=== PATIENT | male | born 1995 | race African-American/Black ===

== ENCOUNTER 2017-10-07 19:49 | Emergency (ER) | payer SELFPAY, OTHER ==
[~2017-10-07 19:49] MED LIST: ISOVUE-370 76%-LOCM 1 ML ONE
[2017-10-07 20:31] LABS: #Basophils 0.1 thou/uL (0.0-0.2); #Eosinphils 0.3 thou/uL (0.0-0.7); #Lymphocytes 2.6 thou/uL (1.20-3.40); #Monocytes 0.7 thou/uL (0.11-0.59); #Neutrophils 6.2 thou/uL (1.40-6.50); %Basophils 0.6 % (0.0-1.0); %Eosinophils 3.5 % (0.0-10.0); Hemoglobin 15.2 g/dL (14.0-18.0); Mean Corpuscular HGB CONC 34.5 g/dL (32.0-36.0); Mean Corpuscular Hemoglobin 31.7 pg (27.0-31.0); Mean Corpuscular Volume 91.8 fl (80.0-94.0); Mean Platelet Volume 8.3 fL (7.4-10.4); Platelet Count 249 thou/uL (130-400); RBC Distribution Width 11.4 % (11.5-14.5); Red Blood Cell (RBC) Count 4.78 mill/uL (4.70-6.10); White Blood Cell (WBC) Count 9.8 thou/uL (4.8-10.8)
[2017-10-07 21:02] LABS: ALT (SGPT) 22 U/L (8-55); AST (SGOT) 21 U/L (5-34); Albumin 4.3 g/dL (3.5-5.0); Alkaline Phosphatase 59 U/L (40-150); Anion Gap 14 mmol/L (10-20); BUN (Urea Nitrogen) 11 mg/dL (8.9-20.6); Bilirubin, Total 0.3 mg/dL (0.2-1.2); Calc. Creatinine Clearance 0 mL/min (70-130); Carbon Dioxide 24 mmol/L (22-29); Chloride 105 mmol/L (98-107); Estimated GFR-MDRD Greater than 90; Globulin 3.6 g/dL (2.4-3.5); Glucose 104 mg/dL (70-105); Lipase 159 U/L (8-78); Potassium 3.8 mmol/L (3.5-5.1); Protein, Total 7.9 g/dL (6.0-8.3); Sodium 139 mmol/L (136-145)
[2017-10-07 22:14] LABS: Bilirubin Negative (Negative); Blood, Urine Negative (Negative); Clarity CLEAR (Clear); Glucose, Urine (Dipstick) Negative (Negative); Leukocyte Negative (Negative); Nitrite Negative (Negative); Protein, Urine (Dipstick) 30 mg/dL (Neg-Trace); Specific Gravity, Urine 1.029 (1.002-1.036); Urobilinogen 0.2 mg/dL (0.2-1.0); pH, Urine 5.5 (5.0-9.0)
[2017-10-07 22:17] LABS: Bacteria/HPF None Seen HPF (None Seen); Hyaline Casts/LPF 0-3 HYALINE CAST LPF (0-3 Hyaline); RBC/HPF 0-3 HPF (0-3); Squamous Epithelial 0-3 HPF (0-3)
[2017-10-07] MEDS ORDERED: Lorazepam 2 MG/ML VIAL ONE (22:34)
[2017-10-07] MEDS ORDERED: Ketorolac Tromethamine 30 MG/ML VIAL ONE (22:34)
--- NOTE | 2017-10-07 23:48 | CT ---
CT ABDOMEN AND PELVIS WITH IV CONTRAST 10/07/17 HISTORY: Abdominal pain, incarcerated hernia. Patient also reports testicular pain. FINDINGS: Comparison is made with the CT stone protocol of 05/13/[address] chest, abdomen and pelvis of 08/20/13 . The lung bases are clear. No free air or free fluid is seen in the abdomen or pelvis. The liver, sple en, pancreas, adrenal glands, and right kidney are normal. There is a 12 mm low density lesion in the left renal cortex. No lymphadenopathy is seen. No calcified gallstones are noted. A normal appearing appendix is present. There is a fat containing left inguinal scrotal hernia and an accompanying smal l left hydrocele. The small bowel loops are not abnormally dilated. There is mild inflammatory change at the neck of the left inguinal scrotal hernia. IMPRESSION: Fat containing left inguinal scrotal hernia with small left hydrocele. POS: ALINE
== END 2017-10-08 00:24 | disposition home or self-care (01) ==
LOC: ERS 19:49
DX: K40.90 Unilateral inguinal hernia, without obstruction or gangrene, not specified as recurrent (principal); F41.9 Anxiety disorder, unspecified; F31.9 Bipolar disorder, unspecified
CPT/HCPCS: 36415; 74177; 80053; 81003; 81015; 83690; 85025; 87081; 87086; 96374; 96375; J1885; J2060

== ENCOUNTER 2017-10-14 15:16 | Day surgery (SDC) | payer SELFPAY ==
[2017-10-14] MEDS ORDERED: Propofol 200 MG/20 ML VIAL ONE (15:19)
[2017-10-14] MEDS ORDERED: Ketorolac Tromethamine 30 MG/ML VIAL ONE (15:19)
[2017-10-14] MEDS ORDERED: Ondansetron HCl/PF 4 MG/2 ML Vial ONE ×2 (15:19→21:48)
[2017-10-14] MEDS ORDERED: Succinylcholine Chloride 20 MG/ML 10 ml SYRINGE FS ONE (15:19)
[2017-10-14] MEDS ORDERED: HYDROcodone/Acetaminophen 10/325 mg Tablet ONE (15:46)
[2017-10-14 18:18] LABS: #Basophils 0.1 thou/uL (0.0-0.2); #Eosinphils 0.3 thou/uL (0.0-0.7); #Lymphocytes 2.5 thou/uL (1.20-3.40); #Monocytes 0.7 thou/uL (0.11-0.59); #Neutrophils 5.1 thou/uL (1.40-6.50); %Basophils 0.6 % (0.0-1.0); %Lymphocytes 28.9 % (21.0-51.0); %Monocytes 8.3 % (0.0-10.0); %Neutrophils 58.3 % (42.0-75.0); Hemoglobin 15.3 g/dL (14.0-18.0); Mean Corpuscular HGB CONC 34.6 g/dL (32.0-36.0); Mean Corpuscular Hemoglobin 31.5 pg (27.0-31.0); Mean Platelet Volume 8.4 fL (7.4-10.4); Platelet Count 252 thou/uL (130-400); RBC Distribution Width 11.3 % (11.5-14.5); Red Blood Cell (RBC) Count 4.85 mill/uL (4.70-6.10); White Blood Cell (WBC) Count 8.8 thou/uL (4.8-10.8)
[2017-10-14] MEDS ORDERED: Fentanyl 250 MCG/5 ML VIAL ONE (18:18)
[2017-10-14] MEDS ORDERED: Midazolam HCl 2 mg/2 ml Vial ONE (18:18)
[2017-10-14 18:27] LABS: Prothrombin Time 13.4 SEC (12.0-14.7)
[2017-10-14 18:28] LABS: PTT 30.3 SEC (22.9-36.1)
[2017-10-14 18:36] LABS: ALT (SGPT) 19 U/L (8-55); AST (SGOT) 19 U/L (5-34); Albumin 4.4 g/dL (3.5-5.0); Alkaline Phosphatase 57 U/L (40-150); Anion Gap 14 mmol/L (10-20); BUN (Urea Nitrogen) 14 mg/dL (8.9-20.6); Bilirubin, Total 0.6 mg/dL (0.2-1.2); Calc. Creatinine Clearance 0 mL/min (70-130); Calcium 9.6 mg/dL (7.8-10.44); Carbon Dioxide 22 mmol/L (22-29); Chloride 105 mmol/L (98-107); Estimated GFR-MDRD Greater than 90; Globulin 3.4 g/dL (2.4-3.5); Glucose 86 mg/dL (70-105); Protein, Total 7.8 g/dL (6.0-8.3); Sodium 137 mmol/L (136-145)
[2017-10-14] MEDS ORDERED: Clindamycin/D5W 900 mg/50 ml Premix Bag ONE (18:49)
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
[2017-10-14] MEDS ORDERED: Bupivacaine HCl 0.5%/Epinephrine 1:200,000/PF 30 ml Vial ONE (19:40)
--- NOTE | 2017-10-14 20:21 | CT ---
CT ABDOMEN AND PELVIS WITH CONTRAST: 10/14/17 HISTORY: Inguinal hernia. Pain. COMPARISON: Exam 10/07/17. FINDINGS: Lung bases are clear. No pericardial effusion. There is abnormal edema along the left fat containing inguinal hernia. There is moderate volume of fl uid in the left scrotal sac, increasing from comparison examination. There is infiltration of the ome ntum and mesentery, this is all progressive from the comparison examination. The hernia contains only fat and vessels and no bowel. No dilated air filled loops of large or small bowel. No free intraperitoneal gas. No free intraperito cassandra fluid. No hydronephrosis. Liver, gallbladder and spleen are unremarkable. 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 IMPRESSION: Large fat containing indirect inguinal hernia with vascular congestion and edema and increased volume of fluid within the left scrotal sac. This is concerning for ischemic changes. Recommend clinical ev aluation and surgical consultation to evaluate for strangulation and incarceration. This has progress ed since the 10/07/17 examination. POS: HOME
[2017-10-14] MEDS ORDERED: Promethazine HCl 25 MG/ML VIAL IM PRN (20:28)
[2017-10-14] MEDS ORDERED: Promethazine HCl 25 MG/ML VIAL SLOW IVP PRN (20:28)
[2017-10-14] MEDS ORDERED: HYDROmorphone 2 MG/ML VIAL SLOW IVP PRN (20:28)
[2017-10-14] MEDS ORDERED: Meperidine HCl/PF 25 MG/ML VIAL SLOW IVP PRN (20:28)
[2017-10-14] MEDS ORDERED: Ondansetron HCl/PF 4 MG/2 ML Vial IVP PRN (20:28)
--- NOTE | 2017-10-14 20:38 | ULT ---
SCROTAL ULTRASOUND: 10/14/17 HISTORY: Left inguinal hernia, left sided pain. TECHNIQUE: Multiplanar raines scale sonographic imaging of the scrotal contents obtained with doppler interrogatio n of the testicles with color flow and spectral analysis. FINDINGS: There is a larger left sided hydrocele noted. Right testicle measures 3.9 x 4.1 x 2.1 cm and left jason ticle measures 2.3 x 3.4 x 2.4 cm. There is no hydrocele on the right. Normal blood flow noted in bot h testicles. Epididymal head measures 9 x 8 mm on the right and 1.1 x 0.6 cm on the left. There are numerous lobulated areas of increased echogenicity in the left scrotal sac, evidence of num erous loops of bowel extending into the left scrotal sac on the basis of large left inguinal hernia. This could be better assessed via CT examination of the pelvis. Of note, No loops of bowel are identi fied within the large fat containing inguinal hernia on the CT examination performed 10/07/17. IMPRESSION: Large left hydrocele. Large left inguinal hernia with the suggestion of numerous small bowel loops ex tending into the left hemiscrotum. Recommend further assessment via CT examination of the abdomen and pelvis. POS: [facility]
[2017-10-14] MEDS ORDERED: HYDROmorphone 0.5 MG/0.5 ML SYRINGE ONE (20:57)
[2017-10-14] MEDS ORDERED: Meperidine HCl/PF 25 MG/ML VIAL ONE (21:36)
--- NOTE | 2017-10-15 00:39 | OP ---
DATE OF OPERATION: 10/14/2017 PREOPERATIVE DIAGNOSIS: Acute incarcerated left inguinal hernia. POSTOPERATIVE DIAGNOSIS: Acute incarcerated left inguinal hernia. OPERATIONS PERFORMED: Repair of incarcerated large left inguinal hernia with PerFix light plug. SURGEON: Jake Ma D.O. ANESTHESIA: General endotracheal. ESTIMATED BLOOD LOSS: Less than 5 mL. SPONGE AND INSTRUMENT COUNT: Certified as correct x2. COMPLICATIONS: None apparent at the time of operation. INDICATIONS FOR PROCEDURE: A 22-year-old -French man presented with worsening left groin pa in associated with enlarging left scrotal mass. Clinical and radiographic examination was consistent with acute incarcerated left inguinal hernia for which the patient was brought to the operating room for hernia repair. Findings are consistent with a large left indirect incarcerated inguinal hernia. No direct hernia was found. DESCRIPTION OF PROCEDURE: Informed consent obtained from the patient who was brought to the operatin g room and placed in supine position. Following general anesthesia, the abdomen was sterilely preppe d and draped in the usual fashion. The prepping included the scrotum and proximal thighs. Following prepping and draping, the scrotal mass was evaluated, attempt to reduce was unsuccessful. An obliqu e left groin incision was made in the usual fashion using a 15 scalpel. The incision was carried thr ough the subcutaneous tissues maintaining hemostasis using the cautery. Lakia's fascia was incised along the line of the incision. External oblique aponeurosis was then incised along the running fibe rs using a fresh scalpel. Cremasteric muscles were then teased apart. I was able then to identify t he spermatic cord with all this contents. This was encircled at the pubic tubercle using a Shirley d rain. Additional dissection of the cremasteric muscle exposed the indirect inguinal hernia sac media l to the spermatic cord. This was dissected free from adhering structures and ligated in the high in guinal position after the omental contents were reduced into the peritoneal cavity. Ligation was acc omplished using a stick tie of 2-0 silk. This was doubly ligated again with a free tie of 2-0 silk. The redundant hernia sac was amputated and passed off the operative field for onward transmission to pathology. I inspected the floor, finding no direct hernia defect. At this juncture, the left test icle was reduced into the scrotal sac. I then placed a PerFix plug into the internal ring over the h ernia sac stump. The apex of the elliptical mesh piece was sutured to the pubic tubercle using a 2-0 Prolene. The medial edge of the mesh was sutured to the internal oblique aponeurosis. Laterally th e mesh was secured to the shelving portion of the external oblique aponeurosis. The distal end of th e mesh was then encircled above the previous plug. Once the mesh was secured into place, the Shirley drain was removed. The external oblique fascia was then approximated using a running stitch of 2-0 Prolene. Subcutaneous tissues were irrigated clear with saline. Good hemostasis noted in place. Th e wound bed was copiously infiltrated with 0.25% Marcaine with epinephrine. Fascia was approximated using interrupted sutures of 2-0 Vicryl. The superficial subcutaneous tissues were again approximate d using interrupted sutures of 2-0 Vicryl. Skin incision itself was closed using a running stitch of 4-0 Monocryl suture in subcuticular fashion. Dermabond was applied over incision. Both testicles w ere confirmed in place within the scrotal sac. The patient tolerated the operation without any appar ent complication and was returned to recovery room in satisfactory condition.
== END 2017-10-14 22:35 | disposition home or self-care (01) ==
LOC: ERS 15:16 → SDC 18:25 → ERS 18:34 → SDC 22:35 → ERS 22:35
PROVIDERS: ATTEND Surgery
PROC: 0YU60JZ Supplement Left Inguinal Region with Synthetic Substitute, Open Approach (ICD-10-PCS; principal; 2017-10-14)
DX: K40.30 Unilateral inguinal hernia, with obstruction, without gangrene, not specified as recurrent (principal); F12.90 Cannabis use, unspecified, uncomplicated; Z88.1 Allergy status to other antibiotic agents
CPT/HCPCS: 74177; 76870; 80053; 85025; 85610; 85730; 86850; 86900; 86901; 88302; 93976; C1781; J0670; J1170; J1885; J2175; J2250; J2405; J2704; J3010; J3490

== ENCOUNTER 2017-10-15 08:48 | Emergency (ER) | payer SELFPAY, OTHER ==
[2017-10-15 09:51] LABS: #Lymphocytes 1.3 thou/uL (1.20-3.40); #Monocytes 1.1 thou/uL (0.11-0.59); #Neutrophils 12.4 thou/uL (1.40-6.50); %Basophils 0.3 % (0.0-1.0); %Eosinophils 0.3 % (0.0-10.0); %Lymphocytes 8.5 % (21.0-51.0); %Monocytes 7.4 % (0.0-10.0); %Neutrophils 83.5 % (42.0-75.0); Hemoglobin 14.9 g/dL (14.0-18.0); Mean Corpuscular HGB CONC 33.8 g/dL (32.0-36.0); Mean Corpuscular Hemoglobin 30.8 pg (27.0-31.0); Mean Corpuscular Volume 91.1 fl (80.0-94.0); Mean Platelet Volume 8.4 fL (7.4-10.4); Platelet Count 230 thou/uL (130-400); RBC Distribution Width 11.2 % (11.5-14.5); Red Blood Cell (RBC) Count 4.82 mill/uL (4.70-6.10); White Blood Cell (WBC) Count 14.9 thou/uL (4.8-10.8)
[2017-10-15 10:13] LABS: ALT (SGPT) 16 U/L (8-55); AST (SGOT) 19 U/L (5-34); Albumin 4.1 g/dL (3.5-5.0); Alkaline Phosphatase 52 U/L (40-150); Anion Gap 13 mmol/L (10-20); BUN (Urea Nitrogen) 12 mg/dL (8.9-20.6); Bilirubin, Total 0.9 mg/dL (0.2-1.2); Calc. Creatinine Clearance 0 mL/min (70-130); Calcium 9.5 mg/dL (7.8-10.44); Carbon Dioxide 23 mmol/L (22-29); Chloride 104 mmol/L (98-107); Estimated GFR-MDRD Greater than 90; Globulin 3.2 g/dL (2.4-3.5); Glucose 110 mg/dL (70-105); Potassium 3.8 mmol/L (3.5-5.1); Protein, Total 7.3 g/dL (6.0-8.3); Sodium 136 mmol/L (136-145)
== END 2017-10-15 09:58 | disposition left against medical advice (07) ==
LOC: ERS 08:48
DX: G89.18 Other acute postprocedural pain (principal); R10.32 Left lower quadrant pain; F41.9 Anxiety disorder, unspecified; F31.9 Bipolar disorder, unspecified; F25.9 Schizoaffective disorder, unspecified
CPT/HCPCS: 36415; 80053; 85025; 99283

== ENCOUNTER 2019-11-27 14:49 | Emergency (ER) | payer SELFPAY | END 2019-11-27 15:49 | disposition home or self-care (01) | LOC: ERS 14:49 | DX: R10.32 Left lower quadrant pain (principal) | CPT/HCPCS: 99283 ==

== ENCOUNTER 2020-07-23 17:33 | Emergency (ER) | payer SELFPAY ==
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
== END 2020-07-23 18:24 | disposition home or self-care (01) ==
LOC: ERS 17:33
DX: S60.221A Contusion of right hand, initial encounter (principal); W23.0XXA Caught, crushed, jammed, or pinched between moving objects, initial encounter

== ENCOUNTER 2022-05-17 07:45 | Emergency (ER) | payer SELFPAY ==
[2022-05-17] MEDS ORDERED: Ondansetron ODT 4 MG TAB ONE (09:27)
== END 2022-05-17 10:26 | disposition left against medical advice (07) ==
LOC: ERS 07:45
DX: R11.10 Vomiting, unspecified (principal)
CPT/HCPCS: Q0162

== ENCOUNTER 2023-10-13 09:34 | Emergency (ER) | payer OTHER, SELFPAY ==
[2023-10-13] MEDS ORDERED: Ondansetron ODT 4 MG TAB ONE (09:49)
[2023-10-13 10:01] LABS: #Eosinphils 0.3 thou/uL (0.0-0.7); #Monocytes 0.7 thou/uL (0.11-0.59); #Neutrophils 4.6 thou/uL (1.40-6.50); %Basophils 0.5 % (0.0-1.0); %Eosinophils 3.7 % (0.0-10.0); %Lymphocytes 32.9 % (21.0-51.0); %Monocytes 8.7 % (0.0-10.0); Hematocrit 44.2 % (42.0-52.0); Hemoglobin 15.3 g/dL (14.0-18.0); Mean Corpuscular HGB CONC 34.6 g/dL (32.0-36.0); Mean Corpuscular Hemoglobin 30.5 pg (27.0-31.0); Mean Corpuscular Volume 88.2 fl (78.0-98.0); Mean Platelet Volume 10.8 fL (7.4-10.4); Platelet Count 295 10x3/uL (130-400); RBC Distribution Width 11.8 % (11.5-14.5); Red Blood Cell (RBC) Count 5.01 mill/uL (4.70-6.10); White Blood Cell (WBC) Count 8.5 10x3/uL (4.8-10.8)
[2023-10-13 10:31] LABS: ALT (SGPT) 15 U/L (8-55); AST (SGOT) 21 U/L (5-34); Albumin 4.2 g/dL (3.5-5.0); Alkaline Phosphatase 61 U/L (40-110); Anion Gap 14 mmol/L (10-20); BUN (Urea Nitrogen) 13 mg/dL (8.9-20.6); Bilirubin, Total 0.6 mg/dL (0.2-1.2); Calc. Creatinine Clearance 0 mL/min (70-130); Calcium 9.8 mg/dL (7.8-10.44); Carbon Dioxide 21 mmol/L (22-29); Chloride 106 mmol/L (98-107); Estimated GFR 118; Globulin 4.1 g/dL (2.4-3.5); Glucose 108 mg/dL (70-105); Lipase 26 U/L (8-78); Potassium 4.1 mmol/L (3.5-5.1); Protein, Total 8.3 g/dL (6.0-8.3); Sodium 137 mmol/L (136-145)
== END 2023-10-13 10:20 | disposition home or self-care (01) ==
LOC: ERS 09:34
DX: R11.10 Vomiting, unspecified (principal)
CPT/HCPCS: 36415; 80053; 83605; 83690; 85025; 99284; Q0162